=== PATIENT | female | born 1940 | race Caucasian/White ===

== ENCOUNTER 2019-05-19 14:58 | Outpatient (CLI) | payer MEDICARE, SELFPAY ==
--- NOTE | ~2019-05-19 | DEXA_ITS ---
Bone Density Report Name: Camille Elena Age: 79 Sex: Female Ethnicity: White Date of : 1940 Indication: osteopenia; monitoring treatment; height loss; hysterectomy; Referring Provider: GUILHERME TIRADO Study: Bone densitometry was performed. Exam Date: May 19, 2019 Accession number: [id number] Bone Density: Region BMD T-score Z-score Classification AP Spine (L2, L4) 1.147 0.6 3.4 Normal Femoral Neck (Left) 0.662 -1.7 0.7 Osteopenia Total Hip (Left) 0.834 -0.9 1.2 Normal Total Hip Bilateral Avg 0.788 -1.2 0.9 Osteopenia Femoral Neck (Right) 0.628 -2.0 0.4 Osteopenia Total Hip (Right) 0.742 -1.6 0.5 Osteopenia World Health Organization criteria for BMD impression classify patients as: Normal (T-score at or above -1.0), Osteopenia (T-score between -1.0 and -2.5), or Osteoporosis (T-score at or below -2.5). 10-year Fracture Risk: FRAX not reported because: Treated for osteoporosis Previous Exams: Region Exam Age BMD T-score BMD Change BMD Change Date g/cm2 vs Baseline vs Previous AP Spine(L2, L4) 05/19/2019 79 1.147 0.6 0.081(7.6%)# 0.069(6.4%)* 04/27/2017 77 1.079 0.0 0.012(1.1%)# -0.009(-0.9%)# 03/28/2013 73 1.088 0.1 0.021(2.0%)# -0.040(-3.6%)* 02/16/2011 70 1.128 0.5 0.062(5.8%)# 0.062(5.8%)# 02/07/2008 67 1.067 -0.1 Total Hip(Left) 05/19/2019 79 0.834 -0.9 -0.023(-2.7%)# -0.018(-2.1%) 04/27/2017 77 0.853 -0.7 -0.005(-0.5%)# 0.013(1.6%)# 03/28/2013 73 0.839 -0.8 -0.018(-2.1%)# 0.015(1.8%) 02/16/2011 70 0.824 -1.0 -0.033(-3.9%)# -0.033(-3.9%)# 02/07/2008 67 0.857 -0.7 Total Hip(Right) 05/19/2019 79 0.742 -1.6 -0.073(-9.0%)# -0.070(-8.6%)* 04/27/2017 77 0.811 -1.1 -0.004(-0.4%)# 0.066(8.8%)# 03/28/2013 73 0.746 -1.6 -0.069(-8.5%)# -0.036(-4.6%)* 02/16/2011 70 0.782 -1.3 -0.033(-4.1%)# -0.033(-4.1%)# 02/07/2008 67 0.815 -1.0 *Denotes significance at 95% confidence level, LSC for AP Spine = 0.022 g/cm2, LSC for Total Hip = 0.027 g/cm2 Clinical Information Provided by Patient: Is being treated for osteoporosis Has used the following medications: Boniva (i.e. ibandronate), Vitamin D Has the following medical conditions: Hysterectomy Patient maximum height was 64.5 Menopause Age: 2 Onset of menses at age 13 Number of children 2 Impression: The patient has low bone mass, based on the Right Femoral Neck T-score.
--- NOTE | ~2019-05-19 | MM_ITS ---
EXAMINATION: MM screening alanna BI w brynn HISTORY: Screening mammogram TECHNIQUE: Craniocaudal and mediolateral oblique 3-D tomosynthesis images were obtained and synthetic 2-D images were generated. CAD analysis was submitted and interpreted. COMPARISON: Comparison to multiple prior studies sequentially, with oldest reviewed study dated 11/2014. BREAST PARENCHYMAL COMPOSITION: There are scattered areas of fibroglandular density. FINDINGS: There is no evidence of suspicious mass, calcification, or architectural distortion to sugg est malignancy in either breast. There has been no suspicious interval change. IMPRESSION: 1. No mammographic evidence of malignancy. 2. Recommend routine screening mammography in one year. BI-RADS Category 1: Negative Reviewed, dictated and finalized at location A. E WRAPPER
== END 2019-05-19 14:59 | disposition home or self-care (01) ==
LOC: ANHIMG 15:01
PROVIDERS: PCP Family Medicine; Visit Provider Family Medicine
DX: Z12.31 Encounter for screening mammogram for malignant neoplasm of breast (principal); Z78.0 Asymptomatic menopausal state; M85.852 Other specified disorders of bone density and structure, left thigh; M85.851 Other specified disorders of bone density and structure, right thigh
CPT/HCPCS: 77063; 77067; 77080

== ENCOUNTER 2020-03-05 12:05 | Outpatient (CLI) | payer MEDICARE, SELFPAY ==
--- NOTE | ~2020-03-05 | US_ITS ---
EXAMINATION: US carotid duplex BI DATE: 03/05/2020 12:54 INDICATION: Carotid arterial bruit TECHNIQUE: Grayscale, color Doppler, and pulsed Doppler images of the cervical carotid arteries were obtained. The degree of vessel stenosis is placed in one of the following categories: normal, <50%, 5 0-69%, >=70% but less than near-occlusion, near-occlusion, or total occlusion. Note that percent sten osis relative to normal distal artery lumen diameter is indirectly measured from velocity measurement s as described by Zia, et al. Radiology 2003; 229:340-346. COMPARISON: None. FINDINGS: RIGHT: The right common carotid artery (CCA) peak systolic velocity (PSV) is 100 cm/s. The right internal ca rotid artery (ICA) PSV is 116 cm/s. The right ICA end-diastolic velocity (EDV) is 24 cm/s. The right ICA/CCA PSV ratio is 1.2. Grayscale and color Doppler images yield an estimate of <50% diameter reduc tion from plaque in the ICA. The external carotid artery (ECA) PSV is 73 cm/s. There is antegrade shirley w in the right vertebral artery. LEFT: The left CCA PSV is 79 cm/s. The left ICA PSV is 105 cm/s. The left ICA EDV is 26 cm/s. The left ICA/ CCA PSV ratio is 1.3. Grayscale and color Doppler images yield an estimate of <50% diameter reduction from plaque in the ICA. The ECA PSV is 69 cm/s. There is antegrade flow in the left vertebral artery . IMPRESSION: 1. <50% stenosis in the right internal carotid artery. 2. <50% stenosis in the left internal carotid artery. Reviewed, dictated and finalized at location B. ACT MIXER
== END 2020-03-05 12:06 | disposition home or self-care (01) ==
PROVIDERS: PCP Family Medicine; Visit Provider Family Medicine
DX: R09.89 Other specified symptoms and signs involving the circulatory and respiratory systems (principal)
CPT/HCPCS: 93880

== ENCOUNTER → 2020-04-26 13:57 | Outpatient (CLI) | payer MEDICARE, SELFPAY ==
--- NOTE | ~2020-04-26 | CT_ITS ---
EXAMINATION: CT abdomen pelvis wo con EXAM DATE: 04/26/2020 14:15 INDICATION: Low abdominal pain for one month. Right nephrectomy (donor). Hysterectomy. TECHNIQUE: Spiral CT of the abdomen and pelvis was performed without contrast. Axial, coronal and s agittal images were reviewed. The dose-length product (DLP) for this examination was 333.93 mGy-cm. The exposure was tailored according to patient size (auto mA exposure control), and iterative recons truction (ASIR) was used as additional dose reduction technique. Comparison is made to prior examinat ion from 08/16/2018. FINDINGS: The liver, spleen, adrenal glands and pancreas are unremarkable. Gallbladder is unremarkab le. No biliary obstruction. There is no left nephrolithiasis or hydronephrosis. The uterus is not identified and has likely been surgically resected. The bladder is unremarkable. There is no retro peritoneal or pelvic lymphadenopathy. There is moderate scattered arteriosclerotic disease. The appendix is not positively visualized. There is no pericecal inflammatory change to suggest appe ndicitis. The stomach and small bowel are unremarkable. There is expected amount of colonic stool. No free intraperitoneal gas. The heart is normal in size. There are no pericardial or pleural e ffusions. The lung bases are unremarkable. There are no osteoblastic or osteolytic lesions identifi ed. Advanced thoracolumbar spondylosis. IMPRESSION: 1. No acute intra-abdominal findings. Reviewed, dictated and finalized at location B. SING DEPARTMENT SUPERVISOR
== END ==
PROVIDERS: Visit Provider Family Medicine
DX: R10.9 Unspecified abdominal pain (principal)
CPT/HCPCS: 74176

== ENCOUNTER 2020-07-16 10:28 | Outpatient (CLI) | payer MEDICARE, SELFPAY ==
--- NOTE | ~2020-07-16 | MM_ITS ---
EXAMINATION: MM screening alanna BI w brynn HISTORY: Screening mammogram TECHNIQUE: Craniocaudal and mediolateral oblique 3-D tomosynthesis images were obtained and synthetic 2-D images were generated. CAD analysis was submitted and interpreted. COMPARISON: May 19, 2019, May 17, 2018, April 27, 2017, April 21, 2016 bilateral digita l screening mammogram examinations BREAST PARENCHYMAL COMPOSITION: There are scattered areas of fibroglandular density. FINDINGS: Stable mild fibroglandular asymmetry. There is no evidence of suspicious mass, calcificatio n, or architectural distortion to suggest malignancy in either breast. There has been no suspicious i nterval change. IMPRESSION: 1. No mammographic evidence of malignancy. 2. Recommend routine screening mammography in one year. BI-RADS Category 2: Benign finding(s). Reviewed, dictated and finalized at location A.
== END 2020-07-16 10:29 | disposition home or self-care (01) ==
LOC: ANHIMG 10:34
PROVIDERS: Visit Provider Family Medicine
DX: Z12.31 Encounter for screening mammogram for malignant neoplasm of breast (principal)
CPT/HCPCS: 77063; 77067

== ENCOUNTER 2021-06-09 14:53 | Emergency (ER) | payer MEDICARE, SELFPAY ==
[2021-06-09 14:58] VITALS: BP 142/70; PULSE 66; RESP 16; TEMP 36.6; O2SAT 98
--- NOTE | 2021-06-09 15:01 | ED.UPPEXIN ---
HPI - Extremity Injury (Upper) General Chief Complaint: Extremity Injury, Upper Stated Complaint: Right arm pain Time Seen by Provider: 06/09/21 15:01 Source: patient Mode of arrival: ambulatory Limitations: no limitations History of Present Illness HPI narrative: Ms. Elena is an 81-year-old female patient presenting to the clinic today with complaints of intermittent right arm pain x1 year. She reports the right arm pain has worsened over the last 5 days. Has been swimming-completing breaststroke's at the [facility] and thinks that this has increased her pain. Reports the pain is a dull ache that waxes and wanes at night. This pain is disrupting her sleep pattern. She denies any numbness or tingling in her hand or fingers. 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 Denies any pain over the elbow Related Data Allergies Allergy/AdvReac Type Severity Reaction Status Date / Time hydroxyzine Allergy Mild pruritus Verified 06/09/21 15:02 Review of Systems Review of Systems: Pertinent positives per HPI. Patient denies any fever, chills, rash, headache, visual changes, dizziness, cough, runny nose, sore throat, shortness of breath, chest pain, palpitations, nausea, vomiting, diarrhea, constipation, abdominal pain, or any urinary issues. [facility] Past Medical History Medical History Arterial atherosclerosis Arthritis Benign reactive hypertension Mixed hyperlipidemia Osteopenia after menopause Spondylosis of cervicothoracic spine Surgical History Surgical History H/O cervical spine surgery H/O kidney donation Hx of hysterectomy Family History Family History Sibling Patient's brother is in good health Family history of kidney disease Mother Family history of cardiovascular disease Family history of arthritis Family history of malignant neoplasm Father Family history of cardiovascular disease Family history of arthritis Social History Social History (Updated 02/07/21 @ 10:14 by Mary Jane Smyth) Social History: Smoking status: Never smoker Second hand tobacco smoke exposure: No Alcohol intake: current Drinks per week: 7 Substance use: never Substance use type: does not use Gender identity (if verbalized by the patient): Female Sexual Orientation (if Verbalized by the Patient): Straight or Heterosexual Comments At the time of my signature, I reviewed and agree with the nursing past medical, surgical, social, and family history. Exam Narrative: General: Well-developed, well nourished, in no apparent distress. Head: Normocephalic, atraumatic Cardio: Regular rate and rhythm, s1 and s2 normal, no murmur appreciated. Resp: Clear to auscultation bilaterally, no rhonchi, rales, wheezing or rubs. Musculoskeletal: No deformity, mild tenderness to palpation over the right biceps tendon and triceps muscle, grossly normal range of motion, some discomfort over the triceps and biceps with empty can and full can testing, muscle strength strong and equal, hand grasp equal and strong, peripheral pulse strong, no edema, no cyanosis, normal gait and station Course Course Emergency Course: Portions of this record may have been created with voice recognition software. Level of Care: Express Care Visit Vital Signs Vital signs: Vital signs reviewed MDM - Extremity Injury (Upper) MDM Narrative Medical decision making narrative: At the time of visit patient was complaining of right upper arm pain. Reports that pain was worse last night keeping her up. Has mild pain to palpation over the biceps tendon and the triceps of the right arm today. She denies any radiation of pain that starts from her neck and going down her arm. Has equal strong hand grasp. I suspect
[2021-06-09 15:04] VITALS: BP 142/70; PULSE 66; RESP 16; TEMP 36.6; O2SAT 98
== END 2021-06-09 15:16 | disposition home or self-care (01) ==
PROVIDERS: Emergency Provider Nurse Practitioner Family; PCP Family Medicine
DX: M75.21 Bicipital tendinitis, right shoulder (principal); M19.90 Unspecified osteoarthritis, unspecified site; E78.2 Mixed hyperlipidemia; M81.0 Age-related osteoporosis without current pathological fracture; M47.813 Spondylosis without myelopathy or radiculopathy, cervicothoracic region; I10 Essential (primary) hypertension; I70.90 Unspecified atherosclerosis
CPT/HCPCS: 99213; G0463

== ENCOUNTER 2021-08-08 10:08 | Outpatient (CLI) | payer MEDICARE, SELFPAY ==
--- NOTE | ~2021-08-08 | XR_ITS ---
XR shoulder RT min 2V 08/08/2021 12:25 Indication: Right shoulder pain Procedure: 4 views right shoulder Comparison: No prior studies for comparison. Findings: There is moderate glenohumeral joint osteoarthritis. Prominent marginal osteophyte. No frac ture or traumatic malalignment. Surrounding osseous structures within normal normal limits. Acromiocl avicular joint and anatomic alignment. No significant soft tissue abnormality. No foreign bodies. Impression: 1: Moderate right glenohumeral joint osteoarthritis. Reviewed, dictated and finalized at location B. Impression: 1: Moderate right glenohumeral joint osteoarthritis.
== END 2021-08-08 10:09 | disposition home or self-care (01) ==
LOC: ANHIMG 10:10
PROVIDERS: PCP Family Medicine; Visit Provider Family Medicine
DX: M19.011 Primary osteoarthritis, right shoulder (principal)
CPT/HCPCS: 73030

== ENCOUNTER 2021-10-31 14:31 | Outpatient (CLI) | payer MEDICARE, SELFPAY ==
--- NOTE | ~2021-10-31 | DEXA_ITS ---
Bone Density Report Name: NANCY CORRIGAN Age: 81 Sex: Female Ethnicity: White Date of : 1940 Indication: osteopenia; height loss; hysterectomy; postmenopausal Referring Provider: GUILHERME TIRADO Study: Bone densitometry was performed. Exam Date: October 31, 2021 Accession number: [id number] Bone Density: Region BMD T-score Z-score Classification AP Spine(L2, L3, L4) 1.195 1.1 4.0 Normal Femoral Neck (Left) 0.681 -1.5 1.0 Osteopenia Total Hip (Left) 0.820 -1.0 1.3 Normal Femoral Neck (Right) 0.635 -1.9 0.5 Osteopenia Total Hip (Right) 0.767 -1.4 0.8 Osteopenia Total Hip Mean 0.794 -1.2 1.1 Osteopenia World Health Organization criteria for BMD impression classify patients as: Normal (T-score at or above -1.0), Osteopenia (T-score between -1.0 and -2.5), or Osteoporosis (T-score at or below -2.5). 10-year Fracture Risk(1): Major Osteoporotic Fracture 15% Hip Fracture 4.7% Reported Risk Factors: [place] (), Neck BMD=0.635, BMI=23.8 (1) FRAX(R) Version 3.08. Fracture probability calculated for an untreated patient. Fracture probability may be lower if the patient has received treatment. Previous Exams: Region Exam Age BMD T-score BMD Change BMD Change Date g/cm2 vs Baseline vs Previous Total Hip(Left) 10/31/2021 81 0.820 -1.0 -0.004 (-0.4%) -0.014 (-1.7%) 05/19/2019 79 0.834 -0.9 0.010 (1.3%)# -0.018 (-2.1%) 04/27/2017 77 0.853 -0.7 0.029 (3.5%)# 0.029 (3.5%)# 02/16/2011 70 0.824 -1.0 Total Hip(Right) 10/31/2021 81 0.767 -1.4 -0.014 (-1.8%) 0.026 (3.5%) 05/19/2019 79 0.742 -1.6 -0.040 (-5.1%) -0.070 (-8.6%) 04/27/2017 77 0.811 -1.1 0.030 (3.8%)# 0.030 (3.8%)# 02/16/2011 70 0.782 -1.3 *Denotes significance at 95% confidence level, LSC for Total Hip = 0.027 g/cm2 # Denotes dissimilar scan types or analysis methods Clinical Information Provided by Patient: Has used the following medications: Vitamin D Has the following medical conditions: Hysterectomy Patient maximum height was 64.5 Menopause Age: 46 Onset of menses at age 13 Number of children 2 Impression: The patient has low bone mass, based on the Right Femoral Neck T-score. The patient has an estimated ten-year risk of hip fracture of 4.7% and an estimated ten-year risk of major fracture of 15%, based on the WHO FRAX algorithm. No significant bone loss was observed. Discussion: BONE DENSITY IS LOW AT ONE OR MORE SKELETAL SITES.
--- NOTE | ~2021-10-31 | MM_ITS ---
EXAMINATION: MM screening [facility] BI w brynn HISTORY: Screening mammogram TECHNIQUE: Craniocaudal and mediolateral oblique 3-D tomosynthesis images were obtained and synthetic 2-D images were generated. CAD analysis was submitted and interpreted. COMPARISON: 07/16/2020, 05/19/2019, 05/17/2018 BREAST PARENCHYMAL COMPOSITION: There are scattered areas of fibroglandular density. FINDINGS: There is no suspicious mass, calcification, or architectural distortion to suggest malignan cy in either breast. There has been no suspicious interval change. IMPRESSION: 1. No mammographic evidence of malignancy. 2. Recommend routine screening mammography while the patient remains in good health. BI-RADS Category 1: Negative Reviewed, dictated and finalized at location A. IMPRESSION: 1. No mammographic evidence of malignancy. 2. Recommend routine screening mammography while the patient remains in good he alth. BI-RADS Category 1: Negative
== END 2021-10-31 14:32 | disposition home or self-care (01) ==
PROVIDERS: PCP Family Medicine; Visit Provider Family Medicine
DX: Z12.31 Encounter for screening mammogram for malignant neoplasm of breast (principal); Z78.0 Asymptomatic menopausal state; M85.852 Other specified disorders of bone density and structure, left thigh; M85.851 Other specified disorders of bone density and structure, right thigh
CPT/HCPCS: 77063; 77067; 77080

== ENCOUNTER 2021-11-21 13:03 | Emergency (ER) | payer MEDICARE, SELFPAY ==
[2021-11-21 13:09] VITALS: BP 155/75; PULSE 78; RESP 16; TEMP 36.4; O2SAT 98
--- NOTE | 2021-11-21 13:54 | ED.WOUNDLAC ---
HPI - Wound/Laceration General Chief Complaint: Wound/Laceration Stated Complaint: laceration Time Seen by Provider: 11/21/21 13:45 History of Present Illness HPI narrative: Patient is an 81-year-old female with a history of hypertension, hyperlipidemia presenting with a leg injury. Patient states that she was walking through her garage when she accidentally scraped her leg against a torie ornament. She sustained a skin tear to her right lower extremity. States that her Tdap is up-to-date. She denies further injury. Denies further complaints. Related Data Allergies Allergy/AdvReac Type Severity Reaction Status Date / Time hydroxyzine Allergy Mild pruritus Verified 11/25/21 13:54 Review of Systems Review of Systems: All systems reviewed & are unremarkable except as noted in HPI and below PMFSH Past Medical History Medical History Arterial atherosclerosis Arthritis Benign reactive hypertension History of stress test (~2011) Mixed hyperlipidemia Osteopenia after menopause Spondylosis of cervicothoracic spine Surgical History Surgical History H/O cervical spine surgery H/O kidney donation (~1985) Hx of hysterectomy (~1988) Family History Family History Sibling Patient's brother is in good health Family history of kidney disease Mother Family history of cardiovascular disease Family history of arthritis Family history of malignant neoplasm Father Family history of cardiovascular disease Family history of arthritis Social History Social History (Updated 11/25/21 @ 13:55 by Mary Jane Smyth) Social History: Smoking status: Never smoker Second hand tobacco smoke exposure: No Alcohol intake: current Drinks per week: 7 Alcohol use details: drinks a glass of wine once a day. Substance use: never Substance use type: does not use Gender identity (if verbalized by the patient): Female Sexual Orientation (if Verbalized by the Patient): Straight or Heterosexual Exam Narrative: GENERAL: Well-appearing, well-nourished, and in no acute distress. HEAD: Normocephalic, atraumatic. EYES: PERRLA and EOMI. ENT: Nares clear, no rhinorrhea or epistaxis. Mucous membranes moist. NECK: Supple. CHEST: Clear to auscultation. No respiratory distress. HEART: Regular rate and rhythm. No murmur heard. Normal peripheral pulses. ABDOMEN: Soft, nontender, nondistended, normal active bowel sounds. EXTREMITIES: Normal range of motion. No edema. SKIN: +skin tear to R lower extremity, bleeding well controlled; no lacerations requiring repair NEURO: No focal deficits. Alert and oriented x3. PSYCH: Normal mood and affect. Course Course Emergency Course: Patient is an 81-year-old female presenting with a skin tear to her lower extremity. Patient is hypertensive, otherwise vitals are within normal limits. Exam is remarkable for the above. Patient states that her Tdap is up-to-date. The skin tear was cleaned and dressed with nonadhesive dressing. Discussed appropriate wound care. Advised to monitor for signs of infection. Recommended following up with her primary care provider within 3 to 5 days. Appropriate return precautions were given. Patient voiced understanding and is agreeable with plan. Discharged in stable condition. Vital Signs Vital signs: Vital Signs Temperature 97.6 F 11/21/21 13:09 Pulse Rate 78 11/21/21 13:09 Respiratory Rate 16 11/21/21 13:09 Blood Pressure 155/75 H 11/21/21 13:09 Pulse Oximetry 98 11/21/21 13:09 Temperature 97.6 F 11/21/21 13:09 Pulse Rate 78 11/21/21 13:09 Respiratory Rate 16 11/21/21 13:09 Blood Pressure 155/75 H 11/21/21 13:09 Pulse Oximetry 98 11/21/21 13:09 Discharge Plan Discharge Clinical Impression: Skin tear of lower leg wi
== END 2021-11-21 14:29 | disposition home or self-care (01) ==
PROVIDERS: Emergency Provider Emergency Medicine; PCP Family Medicine
DX: S81.811A Laceration without foreign body, right lower leg, initial encounter (principal); I70.90 Unspecified atherosclerosis; I10 Essential (primary) hypertension; E78.2 Mixed hyperlipidemia; M85.80 Other specified disorders of bone density and structure, unspecified site; M19.90 Unspecified osteoarthritis, unspecified site; Z90.710 Acquired absence of both cervix and uterus; W26.8XXA Contact with other sharp object(s), not elsewhere classified, initial encounter
CPT/HCPCS: 99282

== ENCOUNTER 2022-01-14 07:25 | Outpatient (RCR) | payer MEDICARE, SELFPAY ==
[2021-12-17 10:00] VITALS: BMI 23.4
== END 2022-03-02 08:39 | disposition home or self-care (01) ==
LOC: ANHWOC 07:25
PROVIDERS: PCP Family Medicine; Visit Provider Physician Assistant
DX: L03.115 Cellulitis of right lower limb (principal)
CPT/HCPCS: 99212; 99213; A9270; G0463

== ENCOUNTER 2022-07-01 13:56 | Outpatient (CLI) | payer MEDICARE, SELFPAY ==
--- NOTE | ~2022-07-01 | XR_ITS ---
EXAM: XR abdomen/kub 1V DATE: 07/01/2022 14:34 HISTORY: R10.9 - Unspecified abdominal pain MID ABD X 1 WK NO N/V . COMPARISON: CT abdomen and pelvis 04/26/2020. FINDINGS: Bibasilar scar/atelectasis.. Normal bowel gas pattern. No organomegaly. Degenerative roa es in the lumbar spine, bilateral hips and pubic symphysis. Pelvic phleboliths. IMPRESSION: No radiographic evidence of obstruction or ileus. Reviewed, dictated and finalized at location K.
[2022-07-01 14:28] LABS: Basophils Absolute Auto 0.1 K/mm3 (0.0-0.1); Eosinophils Absolute Auto 0.1 K/mm3 (0-0.3); Eosinophils Percent Auto 0.7 % (0-4.4); Hematocrit 41.4 % (37.0-47.0); Hemoglobin 13.9 g/dL (12.0-15.0); Immature Granulocyte Absolute 0.01 K/mm3 (0.00-0.031); Immature Granulocyte Percent A 0.1 % (0-0.5); Lymphocytes Absolute Auto 2.03 K/mm3 (0.9-3.2); Lymphocytes Percent Auto 28.9 % (18.3-44.2); Mean Corpuscular HGB Conc 33.6 g/dl (32-36); Mean Corpuscular Hemoglobin 31.8 pg (26-34); Mean Corpuscular Volume 94.7 fl (80-100); Monocytes Absolute Auto 0.6 K/mm3 (0.1-0.6); Monocytes Percent Auto 8.7 % (2.6-8.5); Neutrophils Absolute Auto 4.3 K/mm3 (1.3-6.7); Neutrophils Percent Auto 60.6 % (45.5-73.1); Platelet Count Result 326 k/mm3 (150-375); Red Blood Count 4.37 M/mm3 (4.2-5.4); Red Cell Distribution Width 13.4 % (11.5-14.5)
[2022-07-01 14:40] LABS: Alanine Aminotransferase 24 U/L (6-35); Albumin Level 4.5 g/dL (3.5-5.1); Alkaline Phosphatase 75 U/L (38-126); Amylase 110 U/L (30-110); Anion Gap 7 mmol/L (8-16); Aspartate Amino Transferase 28 U/L (14-36); Bilirubin,Total 0.6 mg/dL (0.2-1.3); Blood Urea Nitrogen 20 mg/dL (7-17); Carbon Dioxide 32 mmol/L (22-30); Chloride 98 mmol/L (98-107); Estimated Glomerular Filt Rate > 60; Glucose 109 mg/dL (65-110); Lipase 238 U/L (23-300); Potassium 3.6 mmol/L (3.4-5.0); Sodium 137 mmol/L (137-145)
== END 2022-07-01 13:57 | disposition home or self-care (01) ==
PROVIDERS: PCP Family Medicine; Visit Provider Nurse Practitioner Gerontology
DX: R10.9 Unspecified abdominal pain (principal)
CPT/HCPCS: 36415; 74018; 80053; 82150; 83690; 85025

== ENCOUNTER 2022-07-03 15:04 | Outpatient (CLI) | payer MEDICARE, SELFPAY ==
--- NOTE | ~2022-07-03 | CT_ITS ---
EXAMINATION: CT abdomen pelvis wo con DATE: 07/03/2022 15:28 INDICATION: Abdominal pain TECHNIQUE: Computed tomography (CT) of the abdomen and pelvis was performed without intravenous contr ast. The dose-length product was 241.25 mGy-cm. Automated exposure control and iterative reconstructi on technique were employed. COMPARISON: CT dated 04/26/2020. FINDINGS: Elevated right diaphragm, suspicious for phrenic nerve paralysis. Right basilar compressive atelectasis. No significant pleural or pericardial effusion. There is a hernia involving the right u pper abdomen posterior laterally with extension of the liver through the musculature, possibly relate d to prior trauma. There are calcified granulomas of the spleen. The pancreas, adrenal glands and left kidney are unremarkable. The right kidney is not identified, po ssibly congenitally or surgically absent. Nonobstructive bowel pattern. Colonic diverticulosis withou t evidence for diverticulitis. No abnormal pelvic masses or fluid collections. The uterus is surgical ly absent. Severe lumbar spondylosis with dextroscoliosis. IMPRESSION: 1. No acute abdominal abnormality. Reviewed, dictated and finalized at location B.
== END 2022-07-03 15:05 | disposition home or self-care (01) ==
LOC: ANHIMG 15:05
PROVIDERS: PCP Family Medicine; Visit Provider Nurse Practitioner Gerontology
DX: R10.9 Unspecified abdominal pain (principal)
CPT/HCPCS: 74176

== ENCOUNTER 2023-01-05 14:57 | Outpatient (CLI) | payer MEDICARE, SELFPAY ==
--- NOTE | ~2023-01-05 | MM_ITS ---
EXAMINATION: MM screening alanna BI w brynn HISTORY: Screening TECHNIQUE: Craniocaudal and mediolateral oblique 3-D tomosynthesis images were obtained and synthetic 2-D images were generated. CAD analysis was submitted and interpreted. COMPARISON: Comparison to multiple prior studies sequentially, with oldest reviewed study dated 04/21. BREAST PARENCHYMAL COMPOSITION: There are scattered areas of fibroglandular density. FINDINGS: There is no evidence of suspicious mass, calcification, or architectural distortion to sugg est malignancy in either breast. There has been no suspicious interval change. IMPRESSION: 1. No mammographic evidence of malignancy. 2. Recommend routine screening mammography in one year. BI-RADS Category 1: Negative Reviewed, dictated and finalized at location A.
== END 2023-01-05 14:58 | disposition home or self-care (01) ==
PROVIDERS: PCP Family Medicine; Visit Provider Family Medicine
DX: Z12.31 Encounter for screening mammogram for malignant neoplasm of breast (principal)
CPT/HCPCS: 77063; 77067

== ENCOUNTER 2024-02-24 11:54 | Outpatient (CLI) | payer MEDICARE, SELFPAY | END 2024-02-24 11:55 | disposition home or self-care (01) | PROVIDERS: PCP Family Medicine; Visit Provider Nurse Practitioner Family | DX: R10.30 Lower abdominal pain, unspecified (principal) | CPT/HCPCS: 83993 ==

== ENCOUNTER 2024-03-13 10:21 | Outpatient (CLI) | payer MEDICARE, SELFPAY ==
--- NOTE | ~2024-03-13 | CT_ITS ---
EXAMINATION: CTA abdomen pelvis DATE: 03/13/2024 10:47 INDICATION: Other specified signs and symptoms involving the circulatory and respiratory system. TECHNIQUE: Computed tomographic angiography (CTA) of the abdomen and pelvis was performed with 100 mL Omnipaque-350 intravenous contrast. Additional 3D reconstructions utilizing rotating maximum intensi ty projection (MIP) were performed. Automated exposure control and iterative reconstruction technique were employed. The dose-length product was 232.86 mGy-cm. COMPARISON: 07/03/2022 FINDINGS: Mild dependent and basilar atelectasis in the bilateral lower lungs. Heart size is normal. No pericar dial or pleural effusion. 11 mm cyst in the caudal right hepatic lobe. Multiple small splenic calcifi cations consistent with old granulomatous disease. Gallbladder, pancreas, bilateral adrenal glands an d left kidney are normal. Right kidney is absent. Bowels including the appendix are normal. Bladder i s normal. The uterus is not identified and has likely been surgically resected. No free intraperitone al gas or fluid. No pathologically enlarged abdominal or pelvic lymphadenopathy. There is calcified a therosclerosis without hemodynamic significant stenosis of the normal caliber abdominal aorta and man y of the other arteries the abdomen and pelvis. Lumbar dextroscoliosis with severe lumbar and lower t horacic spondylosis. IMPRESSION: 1. Nonhemodynamically significant atherosclerotic plaque at the normal caliber abdominal aorta and th e other arteries in the abdomen and pelvis. 2. No acute intra-abdominal/pelvic process. Reviewed, dictated and finalized at location B. UTER SYSTEMS SECURITY ANALYST IMPRESSION: 1. Nonhemodynamically significant atherosclerotic plaque at the normal caliber abdominal aorta and the other arteries in the abdomen and pelvis. 2. No acute intra-abdominal/pelvic process.
[2024-03-13 10:43] LABS: Estimated Glomerular Filt Rate 47
== END 2024-03-13 10:22 | disposition home or self-care (01) ==
PROVIDERS: PCP Family Medicine; Visit Provider Nurse Practitioner Family
DX: I70.0 Atherosclerosis of aorta (principal); I70.8 Atherosclerosis of other arteries; R09.89 Other specified symptoms and signs involving the circulatory and respiratory systems
CPT/HCPCS: 74174; Q9967

== ENCOUNTER 2024-07-04 09:50 | Outpatient (CLI) | payer MEDICARE, SELFPAY ==
--- NOTE | ~2024-07-04 | MM_ITS ---
EXAMINATION: MM screening alanna BI w brynn HISTORY: Screening TECHNIQUE: Craniocaudal and mediolateral oblique 3-D tomosynthesis images were obtained and synthetic 2-D images were generated. CAD analysis was submitted and interpreted. COMPARISON: Comparison to multiple prior studies sequentially, with oldest reviewed study dated 08/2017. BREAST PARENCHYMAL COMPOSITION: Not dense: There are scattered areas of fibroglandular density. FINDINGS: There is no evidence of suspicious mass, calcification, or architectural distortion to sugg est malignancy in either breast. There has been no suspicious interval change. IMPRESSION: 1. No mammographic evidence of malignancy. 2. Recommend routine screening mammography in one year. BI-RADS Category 1: Negative Reviewed, dictated and finalized at location B.
--- OUTSIDE RECORDS SUMMARY | 2024-07-04 10:36 | XMS_ITS | Clinical Summary ---
Author Organization [facility] Address [address] [place] [address] Care Team Providers Care Manager Baby Name Role Phone Rand Leon MD Primary Care Provider +1- [phone] Immunizations Immunization Administration Dates Next Due MODERNA COVID-19 (12+) MRNA, LNP-S, PF, 100 MCG/ 0.5 ML DOSE 05/31/2020,05/03/2020 Social History Tobacco Use Types Packs/Day Years Used Date Smoking Tobacco: Never Assessed Comments Unknown Sex and Gender Information Value Date Recorded Sex Assigned at Not on file Legal Sex Female 11:48 AM TREE TRIMMER HELPER Gender Identity Not on file Sexual Orientation Not on file Plan of Treatment Health Maintenance Due Date Last Done Comments DTaP, Tdap and Td Vaccines ( 1 - Tdap) 1959 Annual Medicare Wellness Visit 2003 RSV Immunization or 60+ Years (1 - 1-dose 75+ series) 2013 Pneumococcal Vaccine: 50+ Years (2 of 2 - PPSV23 or PCV20) 04/18/2018 04/18/2017 Zoster Vaccines (2 of 2) 05/23/2018 03/28/2018 COVID-19 Vaccine (3 - 2023-2 5 season) 2023 05/31/2020, 05/03/2020 Meningococcal B Vaccine Aged Out No l onger eligible based on patient's age to complete this topic Meningococcal Vaccine Aged Out No lars mirta eligible based on patient's age to complete this topic RSV Immunizations Under 20 Months Aged Out No longer eligible b ased on patient's age to complete [place] [address] [facility] Care Teams Manager Baby Relationship Specialty Start Date End Date Rand Leon MD [address] [facility] [address] [facility] [address] [place] [address] PCP - General FAMILY PRACTICE 05/03/20
--- OUTSIDE RECORDS SUMMARY | 2024-07-04 10:36 | XMS_ITS | Continuity of Care Document ---
Author Organization [facility] Address [address] [place] [address] [address] [place] [address] Phone Care Team Providers Care Perfumer Name Role Phone Yumiko Stokes Unavailable Unavailable Procedures Procedure Date Eye Exam & Treatment Eye Exam & Treatment Refraction Advance Directives Directive Yes / No Effective Date File Name No Information Encounters Encounter Description Practice Location Reason(s) For Visit Diagnoses Date Provider Providers Copied on Encounter [facility], [address] [place] [address] [address], [place], [place], [id number], tel:[phone] [facility] No Information [address] [facility] , [address], [place], [place], [facility], [place]. tel:[phone] [facility], [address] [place] [address] [address], [place], [place], [id number], tel:[phone] [facility] No Information [address] , [address], [place], [address], [place]. tel:[phone] Family History Family Member Type Diagnosis Age At Onset No Information Payers Payer name Insurance type Covered democrat ID Authoriza tion(s) Medicare [facility] [id number] Social History Type Description Quantity Date Captured [...]
--- OUTSIDE RECORDS SUMMARY | 2024-07-04 10:36 | XMS_ITS | Referral Summary ---
Author Organization [facility] [address] Address [address] [place] [address] Care Team Providers Care Automotive Tire Testing Supervisor Name Role Phone Rand Leon MD Primary Care Provider Social History Tobacco Use Types Packs/Day Years Used Date Smoking Tobacco: Never Assessed Personal Safety Answer Date Recorded Getting School Help Needed Not on file 06/03 Comments Unknown Sex and Gender Information Value Date Recorded Sex Assigned at Not on file Legal Sex Female 12:01 AM PET STORE MERCHANDISER Gender Identity Not on file Sexual Orientation Not on file Last Filed Vital Signs Vital Sign Reading Time Taken Comments Blood Pressure 146/85 05/11/2019 8:55 AM PET STORE MERCHANDISER Pulse - - Temperature - - Respiratory Rate - - Oxygen Saturation - - Inhaled Oxygen Concentration - - Weight 57.6 kg (127 lb) 05/11/2019 8:55 AM PET STORE MERCHANDISER Height 162.6 cm (5' 4 ) 05/11/2019 8:55 AM PET STORE MERCHANDISER Body Mass Index 21.8 05/11/2019 8:55 AM PET STORE MERCHANDISER Plan of Treatment Not on file Insurance LAUREN GONZALEZ Care Teams Automotive Tire Testing Supervisor Relationship Specialty Start Date End Date Rand Leon MD [address] [place] [address] PCP - General Family Medicine 04/21/19
--- OUTSIDE RECORDS SUMMARY | 2024-07-04 10:36 | XMS_ITS | Clinical Summary ---
Author Organization [facility] [address] Address [address] [place] [address] Care Team Providers Care Farmworker Machine Name Role Phone Rand Leon MD Primary Care Provider Social History Tobacco Use Types Packs/Day Years Used Date Smoking Tobacco: Never Assessed Personal Safety Answer Date Recorded Getting School Help Needed Not on file 06/03 Comments Unknown Sex and Gender Information Value Date Recorded Sex Assigned at Not on file Legal Sex Female 12:01 AM ORTHO ASSISTANT Gender Identity Not on file Sexual Orientation Not on file Last Filed Vital Signs Vital Sign Reading Time Taken Comments Blood Pressure 146/85 05/11/2019 8:55 AM ORTHO ASSISTANT Pulse - - Temperature - - Respiratory Rate - - Oxygen Saturation - - Inhaled Oxygen Concentration - - Weight 57.6 kg (127 lb) 05/11/2019 8:55 AM ORTHO ASSISTANT Height 162.6 cm (5' 4 ) 05/11/2019 8:55 AM ORTHO ASSISTANT Body Mass Index 21.8 05/11/2019 8:55 AM ORTHO ASSISTANT Plan of Treatment Not on file Insurance LAUREN GONZALEZ Care Teams Farmworker Machine Relationship Specialty Start Date End Date Rand Leon MD [address] [place] [address] PCP - General Family Medicine 04/21/19
== END 2024-07-04 09:51 | disposition home or self-care (01) ==
PROVIDERS: PCP Family Medicine; Visit Provider Family Medicine
DX: Z12.31 Encounter for screening mammogram for malignant neoplasm of breast (principal)
CPT/HCPCS: 77063; 77067

== ENCOUNTER 2024-07-31 13:03 | Outpatient (CLI) | payer MEDICARE, SELFPAY ==
--- OUTSIDE RECORDS SUMMARY | 2024-07-31 13:08 | XMS_ITS | Continuity of Care Document ---
Author Organization [facility] Address [address] [place] [address] [address] [place] [address] Phone Care Team Providers Care Electric Switch Tester Name Role Phone Yumiko Stokes Unavailable Unavailable Procedures Procedure Date Eye Exam & Treatment Eye Exam & Treatment Refraction Advance Directives Directive Yes / No Effective Date File Name No Information Encounters Encounter Description Practice Location Reason(s) For Visit Diagnoses Date Provider Providers Copied on Encounter [facility], [address] [place] [address] [address], [place], [place], [id number], tel:[phone] [facility] No Information [address] [facility] , [address], [place], [place], [facility], [place]. tel:[phone] [facility], [address] [place] [address] [address], [place], [place], [id number], tel:[phone] [facility] No Information [address] , [address], [place], [address], [place]. tel:[phone] Family History Family Member Type Diagnosis Age At Onset No Information Payers Payer name Insurance type Covered green party ID Authoriza tion(s) Medicare [facility] [id number] Social History Type Description Quantity Date Captured [...]
--- OUTSIDE RECORDS SUMMARY | 2024-07-31 13:08 | XMS_ITS | Clinical Summary ---
Author Organization [facility] Address [address] [place] [address] Care Team Providers Care Spout Tender Name Role Phone Rand Leon MD Primary Care Provider +1- [phone] Immunizations Immunization Administration Dates Next Due MODERNA COVID-19 (12+) MRNA, LNP-S, PF, 100 MCG/ 0.5 ML DOSE 05/31/2020,05/03/2020 Social History Tobacco Use Types Packs/Day Years Used Date Smoking Tobacco: Never Assessed Comments Unknown Sex and Gender Information Value Date Recorded Sex Assigned at Not on file Legal Sex Female 11:48 AM REHAB OFFICE COORDINATOR Gender Identity Not on file Sexual Orientation Not on file Plan of Treatment Health Maintenance Due Date Last Done Comments DTaP, Tdap and Td Vaccines ( 1 - Tdap) 1959 Annual Medicare Wellness Visit 2003 RSV Immunization or 60+ Years (1 - 1-dose 75+ series) 2013 Pneumococcal Vaccine: 50+ Years (2 of 2 - PPSV23) 04/18/2018 04/18/2017 Zoster Vaccines (2 of 2) [...] patient's age to complete [place] [address] [facility] Care Teams Spout Tender Relationship Specialty Start Date End Date Rand Leon MD [address] [facility] [address] [facility] [address] [place] [address] PCP - General FAMILY PRACTICE 05/03/20
--- OUTSIDE RECORDS SUMMARY | 2024-07-31 13:08 | XMS_ITS | Referral Summary ---
Author Organization [facility] [address] Address [address] [place] [address] Care Team Providers Care Property Portfolio Officer Name Role Phone Rand Leon MD Primary Care Provider Social History Tobacco Use Types Packs/Day Years Used Date Smoking Tobacco: Never Assessed Personal Safety Answer Date Recorded Getting School Help Needed Not on file 06/03 Comments Unknown Sex and Gender Information Value Date Recorded Sex Assigned at Not on file Legal Sex Female 12:01 AM CASH ACCOUNTING CLERK Gender Identity Not on file Sexual Orientation Not on file Last Filed Vital Signs Vital Sign Reading Time Taken Comments Blood Pressure 146/85 05/11/2019 8:55 AM CASH ACCOUNTING CLERK Pulse - - Temperature - - Respiratory Rate - - Oxygen Saturation - - Inhaled Oxygen Concentration - - Weight 57.6 kg (127 lb) 05/11/2019 8:55 AM CASH ACCOUNTING CLERK Height 162.6 cm (5' 4 ) 05/11/2019 8:55 AM CASH ACCOUNTING CLERK Body Mass Index 21.8 05/11/2019 8:55 AM CASH ACCOUNTING CLERK Plan of Treatment Not on file Insurance LAUREN GONZALEZ Care Teams Property Portfolio Officer Relationship Specialty Start Date End Date Rand Leon MD [address] [place] [address] PCP - General Family Medicine 04/21/19
--- OUTSIDE RECORDS SUMMARY | 2024-07-31 13:08 | XMS_ITS | Clinical Summary ---
Author Organization [facility] [address] Address [address] [place] [address] Care Team Providers Care Mechanical Cad Designer Name Role Phone Rand Leon MD Primary Care Provider Social History Tobacco Use Types Packs/Day Years Used Date Smoking Tobacco: Never Assessed Personal Safety Answer Date Recorded Getting School Help Needed Not on file 06/03 Comments Unknown Sex and Gender Information Value Date Recorded Sex Assigned at Not on file Legal Sex Female 12:01 AM ELECTRONIC WARFARE SPECIALIST Gender Identity Not on file Sexual Orientation Not on file Last Filed Vital Signs Vital Sign Reading Time Taken Comments Blood Pressure 146/85 05/11/2019 8:55 AM ELECTRONIC WARFARE SPECIALIST Pulse - - Temperature - - Respiratory Rate - - Oxygen Saturation - - Inhaled Oxygen Concentration - - Weight 57.6 kg (127 lb) 05/11/2019 8:55 AM ELECTRONIC WARFARE SPECIALIST Height 162.6 cm (5' 4 ) 05/11/2019 8:55 AM ELECTRONIC WARFARE SPECIALIST Body Mass Index 21.8 05/11/2019 8:55 AM ELECTRONIC WARFARE SPECIALIST Plan of Treatment Not on file Insurance LAUREN GONZALEZ Care Teams Mechanical Cad Designer Relationship Specialty Start Date End Date Rand Leon MD [address] [place] [address] PCP - General Family Medicine 04/21/19
[2024-07-31 13:35] LABS: Basophils Absolute Auto 0.1 K/mm3 (0.0-0.1); Basophils Percent Auto 0.7 % (0.2-1.2); Eosinophils Absolute Auto 0.1 K/mm3 (0-0.3); Eosinophils Percent Auto 0.7 % (0-4.4); Hematocrit 43.5 % (37.0-47.0); Immature Granulocyte Absolute 0.02 K/mm3 (0.00-0.031); Immature Granulocyte Percent A 0.3 % (0-0.5); Lymphocytes Absolute Auto 1.78 K/mm3 (0.9-3.2); Lymphocytes Percent Auto 24.8 % (18.3-44.2); Mean Corpuscular HGB Conc 32.2 g/dl (32-36); Mean Corpuscular Hemoglobin 30.5 pg (26-34); Mean Corpuscular Volume 94.8 fl (80-100); Mean Platelet Volume 9.1 fl (7.4-10.4); Monocytes Absolute Auto 0.5 K/mm3 (0.1-0.6); Monocytes Percent Auto 7.4 % (2.6-8.5); Neutrophils Absolute Auto 4.8 K/mm3 (1.3-6.7); Neutrophils Percent Auto 66.1 % (45.5-73.1); Platelet Count Result 276 k/mm3 (150-375); Red Blood Count 4.59 M/mm3 (4.2-5.4); Red Cell Distribution Width 13.5 % (11.5-14.5); White Blood Count 7.2 K/mm3 (4.5-10.0)
[2024-07-31 13:40] LABS: Uric Acid 4.1 mg/dL (2.5-7.5)
[2024-07-31 13:51] LABS: LDL Cholesterol Direct 76 mg/dL
[2024-07-31 14:05] LABS: Alanine Aminotransferase 28 U/L (6-35); Albumin Level 4.7 g/dL (3.5-5.1); Alkaline Phosphatase 69 U/L (38-126); Anion Gap 9 mmol/L (4-12); Aspartate Amino Transferase 33 U/L (14-36); Bilirubin,Total 0.6 mg/dL (0.2-1.3); Blood Urea Nitrogen 21 mg/dL (7-17); Calcium 9.8 mg/dL (8.4-10.2); Carbon Dioxide 28 mmol/L (22-30); Chloride 102 mmol/L (98-107); Cholesterol 229 mg/dL (0-200); Estimated Glomerular Filt Rate > 60; Glucose 101 mg/dL (65-110); Potassium 3.8 mmol/L (3.4-5.0); Sodium 139 mmol/L (137-145); Triglycerides 67 mg/dL (<150)
[2024-07-31 14:17] LABS: Thyroid Stimulating Hormone Reflex 0.751 uIU/mL (0.465-4.68)
[2024-07-31 14:24] LABS: HDL Direct 127 mg/dL
[2024-08-04 15:29] LABS: Vitamin D 1,25 (OH)2 Total 26 pg/mL (18-72); Vitamin D2 1,25 (OH)2 26 pg/mL; Vitamin D3 1,25 (OH)2 <8 pg/mL
== END 2024-07-31 13:04 | disposition home or self-care (01) ==
PROVIDERS: PCP Family Medicine; Visit Provider Physician Assistant
DX: E55.9 Vitamin D deficiency, unspecified (principal); I10 Essential (primary) hypertension; E78.2 Mixed hyperlipidemia; Z90.5 Acquired absence of kidney; M79.673 Pain in unspecified foot
CPT/HCPCS: 36415; 80053; 80061; 82652; 84443; 84550; 85025

== ENCOUNTER 2024-12-11 14:55 | Outpatient (CLI) | payer MEDICARE, SELFPAY ==
--- OUTSIDE RECORDS SUMMARY | 2008-12-18 08:00 | XMS_ITS | Continuity of Care Document ---
Author Organization [facility] Address [address] [place] [address] [address] [place] [address] Phone Care Team Providers Care Print Line Supervisor Name Role Phone Yumiko Stokes Unavailable Unavailable Procedures Procedure Date Eye Exam & Treatment Eye Exam & Treatment Refraction Advance Directives Directive Yes / No Effective Date File Name No Information Encounters Encounter Description Practice Location Reason(s) For Visit Diagnoses Date Provider Providers Copied on Encounter [facility], [address] [place] [address] [address], [place], [place], [id number], tel:[phone] [facility] ([facility]) No Information [address] [facility] , [address], [place], [place], [facility] [place], [place]. tel:[phone] [facility], [address] [place] [address] [address], [place], [place], [id number], tel:[phone] [facility] ([facility] No Information [address] Div[address] Tovar [address] , [address], [place], [address], [place]. tel:[phone] Family History Family Member Type Diagnosis Age At Onset No Information Payers Payer name Insurance type Covered alliance party ID Authoriza tion(s) Medicare [facility] [id number] Social History Type Description Quantity Date Captured Comments Sex Female Smoking Status No Information Chief Complaint And Reason For Visit No Information Reason For Referral Reason For Referral No Information History Of Present Illness Encounter Date Complaint History Of Prese nt Illness No Information Functional Status Date Functional Assessmen t No Information Instructions Date Instruction Additional Infor mation No Information Assessments Type Assessment Date No Information Patient Care Teams Name Effective Dates (start - stop) Status Members No Information
--- NOTE | ~2024-12-11 | DEXA_ITS ---
Bone Density Report Name: NANCY CORRIGAN Age: 84 Sex: Female Ethnicity: White Date of : 1940 Indication: osteopenia; height loss; hysterectomy; Referring Provider: NIDIA FULLER Study: Bone densitometry was performed. Exam Date: December 11, 2024 Accession number: [id number] Bone Density: Region BMD T-score Z-score Classification AP Spine(L1-L4) 1.194 1.3 4.2 Normal Femoral Neck (Left) 0.611 -2.1 0.4 Osteopenia Total Hip (Left) 0.814 -1.1 1.3 Osteopenia Femoral Neck (Right) 0.612 -2.1 0.4 Osteopenia Total Hip (Right) 0.794 -1.2 1.1 Osteopenia Total Hip Mean 0.804 -1.2 1.2 Osteopenia World Health Organization criteria for BMD impression classify patients as: Normal (T-score at or above -1.0), Osteopenia (T-score between -1.0 and -2.5), or Osteoporosis (T-score at or below -2.5). 10-year Fracture Risk(1): Major Osteoporotic Fracture 15% Hip Fracture 5.2% Reported Risk Factors: [place] (), Neck BMD=0.611, BMI=24.3 (1) FRAX(R) Version 3.08. Fracture probability calculated for an untreated patient. Fracture probability may be lower if the patient has received treatment. Previous Exams: Region Exam Age BMD T-score BMD Change BMD Change Date g/cm2 vs Baseline vs Previous Total Hip(Left) 12/11/2024 84 0.814 -1.1 -0.010 (-1.2%) -0.007 (-0.8%) 10/31/2021 81 0.820 -1.0 -0.004 (-0.4%) -0.014 (-1.7%) 05/19/2019 79 0.834 -0.9 0.010 (1.3%)# -0.018 (-2.1%) 04/27/2017 77 0.853 -0.7 0.029 (3.5%)# 0.029 (3.5%)# 02/16/2011 70 0.824 -1.0 Total Hip(Right) 12/11/2024 84 0.794 -1.2 0.012 (1.5%)# 0.026 (3.4%) 10/31/2021 81 0.767 -1.4 -0.014 (-1.8%) 0.026 (3.5%) 05/19/2019 79 0.742 -1.6 -0.040 (-5.1%) -0.070 (-8.6%) 04/27/2017 77 0.811 -1.1 0.030 (3.8%)# 0.030 (3.8%)# 02/16/2011 70 0.782 -1.3 *Denotes significance at 95% confidence level, LSC for Total Hip = 0.027 g/cm2 # Denotes dissimilar scan types or analysis methods Clinical Information Provided by Patient: Has used the following medications: Vitamin D Has the following medical conditions: Hysterectomy Patient maximum height was 64.5 Menopause Age: 46 Drinks caffeinated beverages Onset of menses at age 13 Number of children 2 Impression: The patient has low bone mass, based on the Left Femoral Neck T-score. The patient has an estimated ten-year risk of hip fracture of 5.2% and an estimated ten-year risk of major fracture of 15%, based on the WHO FRAX algorithm. No significant bone loss was observed. Discussion: BONE DENSITY IS LOW AT ONE OR MORE SKELETAL SITES. THE PATIENT'S BMD AND CLINICAL RISK FACTORS CONTRIBUTE TO THIS PATIENT'S INCREASED RISK OF FRACTURE. This patient's lowest T-score is low at one or more skeletal sites. It meets the World Health Organization's (WHO) criteria for ?low bone mass? (T-score between -1.0 and -2.5). The patient's 10-year risk of hip fracture as calculated by FRAX exceeds the threshold where pharmacological therapy is recommended by the National Osteoporosis Foundation (NOF). However, all treatment decisions require clinical judgment and consideration of individual patient factors, including patient preferences, comorbidities, previous drug use, risk factors not captured in the FRAX model (e.g., frailty, falls, vitamin D deficiency, increased bone turnover, interval significant decline in bone density) and possible under or overestimation of fracture risk by FRAX. The patient should follow a healthful lifestyle (good nutrition with adequate calcium and vitamin D, and appropriate weight-bearing exercise). Follow-Up: Consider a repeat BMD and Vertebral Fracture Assessment (VFA) exam in 2 years or sooner if medically necessary, to reassess this patient's status. Reported by: HECTOR on 12/11/2024 3:39:00 PM. Reviewed, dictated and finalized at location A.
--- OUTSIDE RECORDS SUMMARY | 2024-12-11 15:10 | XMS_ITS | Clinical Summary ---
Author Organization [facility] [address] Address [address] [place] [address] Care Team Providers Care Diesel Plant Operator Name Role Phone Rand Leon MD Primary Care Provider Social History Tobacco Use Types Packs/Day Years Used Date Smoking Tobacco: Never Assessed Personal Safety Answer Date Recorded Getting School Help Needed Not on file 06/03 Comments Unknown Sex and Gender Information Value Date Recorded Sex Assigned at Not on file Legal Sex Female 12:01 AM YARN DRY ROOM WORKER Gender Identity Not on file Sexual Orientation Not on file Last Filed Vital Signs Vital Sign Reading Time Taken Comments Blood Pressure 146/85 05/11/2019 8:55 AM YARN DRY ROOM WORKER Pulse - - Temperature - - Respiratory Rate - - Oxygen Saturation - - Inhaled Oxygen Concentration - - Weight 57.6 kg (127 lb) 05/11/2019 8:55 AM YARN DRY ROOM WORKER Height 162.6 cm (5' 4) 05/11/2019 8:55 AM YARN DRY ROOM WORKER Body Mass Index 21.8 05/11/2019 8:55 AM YARN DRY ROOM WORKER Plan of Treatment Not on file Insurance LAUREN GONZALEZ Care Teams Diesel Plant Operator Relationship Specialty Start Date End Date Rand Leon MD [address] [place] [address] PCP - General Family Medicine 04/21/19
--- OUTSIDE RECORDS SUMMARY | 2024-12-11 15:10 | XMS_ITS | Clinical Summary ---
Author Organization [facility] Address [address] [place] [address] Care Team Providers Care Industrial Custodian Name Role Phone Rand Leon MD Primary Care Provider +1- [phone] Immunizations Immunization Administration Dates Next Due MODERNA COVID-19 (12+) MRNA, LNP-S, PF, 100 MCG/ 0.5 ML DOSE 05/31/2020,05/03/2020 Social History Tobacco Use Types Packs/Day Years Used Date Smoking Tobacco: Never Assessed Comments Unknown Sex and Gender Information Value Date Recorded Sex Assigned at Not on file Legal Sex Female 11:48 AM TIRE BLADDER MAKER Gender Identity Not on file Sexual Orientation [...] 2) 05/23/2018 03/28/2018 COVID-19 Vaccine (3 - 2024-2 6 season) 2024 05/31/2020, 05/03/2020 Meningococcal B Vaccine Aged Out No l onger eligible based on patient's age to complete this topic Meningococcal Vaccine Aged Out No lars mirta eligible based on patient's age to complete this topic RSV Immunizations Under 20 Months Aged Out No longer eligible b ased on patient's age to complete [place] [address] [facility] Care Teams Industrial Custodian Relationship Specialty Start Date End Date Rand Leon MD [address] [facility] [address] [facility] [address] [place] [address] PCP - General FAMILY PRACTICE 05/03/20
== END 2024-12-11 14:56 | disposition home or self-care (01) ==
PROVIDERS: PCP Family Medicine; Visit Provider Physician Assistant
DX: Z78.0 Asymptomatic menopausal state (principal); M85.852 Other specified disorders of bone density and structure, left thigh; M85.851 Other specified disorders of bone density and structure, right thigh
CPT/HCPCS: 77080

== ENCOUNTER 2025-02-12 09:16 | Outpatient (CLI) | payer MEDICARE, SELFPAY ==
--- OUTSIDE RECORDS SUMMARY | 2025-02-12 10:15 | XMS_ITS | Clinical Summary ---
Author Organization [facility] Address [address] [place] [address] Care Team Providers Care Executive Vp Name Role Phone Rand Leon MD Primary Care Provider +1- [phone] Immunizations Immunization Administration Dates Next Due MODERNA COVID-19 (12+) MRNA, LNP-S, PF, 100 MCG/ 0.5 ML DOSE 05/31/2020,05/03/2020 Social History Tobacco Use Types Packs/Day Years Used Date Smoking Tobacco: Never Assessed Comments Unknown Sex and Gender Information Value Date Recorded Sex Assigned at Not on file Legal Sex Female 11:48 AM DIGITAL MEDIA MANAGER Gender Identity Not on file Sexual Orientation Not on file Plan of Treatment Health Maintenance Due Date Last Done Comments DTaP, Tdap and Td Vaccines ( 1 - Tdap) 1959 Annual Medicare Wellness Visit 2003 RSV Immunization or 60+ Years (1 - 1-dose 75+ series) 2013 Pneumococcal Vaccine: 50+ Years (2 of 2 - PCV20 or PCV21) 04/18/2018 04/18/2017 Zoster Vaccines (2 of 2) 05/23/2018 03/28/2018 COVID-19 Vaccine (3 - 2024-2 6 season) 2024 05/31/2020, 05/03/2020 Influenza Adult (#1) 2024 12/28/2019, 12/16/2017 Hepatitis A Vaccines Aged Out No long er eligible based on patient's age to complete this topic Meningococcal B Vaccine Aged Out No l onger eligible based on patient's age to complete this topic Meningococcal Vaccine Aged Out No lars mirta eligible based on patient's age to complete this topic RSV Immunizations Under 20 Months Aged Out No longer eligible b ased on patient's age to complete this [place] [address] [facility] [place] [address] Care Teams Executive Vp Relationship Specialty Start Date End Date Rand Leon MD [address] [facility] [address] [facility] [address] [place] [address] PCP - General FAMILY PRACTICE 05/03/20
--- OUTSIDE RECORDS SUMMARY | 2025-02-12 10:15 | XMS_ITS | Clinical Summary ---
Author Organization [facility] [address] Address [address] [place] [address] Care Team Providers Care Jewelry Department Supervisor Name Role Phone Rand Leon MD Primary Care Provider Social History Tobacco Use Types Packs/Day Years Used Date Smoking Tobacco: Never Assessed Personal Safety Answer Date Recorded Getting School Help Needed Not on file 06/03 Comments Unknown Sex and Gender Information Value Date Recorded Sex Assigned at Not on file Legal Sex Female 12:01 AM BACKBREAKER Gender Identity Not on file Sexual Orientation Not on file Last Filed Vital Signs Vital Sign Reading Time Taken Comments Blood Pressure 146/85 05/11/2019 8:55 AM BACKBREAKER Pulse - - Temperature - - Respiratory Rate - - Oxygen Saturation - - Inhaled Oxygen Concentration - - Weight 57.6 kg (127 lb) 05/11/2019 8:55 AM BACKBREAKER Height 162.6 cm (5' 4) 05/11/2019 8:55 AM BACKBREAKER Body Mass Index 21.8 05/11/2019 8:55 AM BACKBREAKER Plan of Treatment Not on file Insurance LAUREN GONZALEZ Care Teams Jewelry Department Supervisor Relationship Specialty Start Date End Date Rand Leon MD [address] [place] [address] PCP - General Family Medicine 04/21/19
[2025-02-12 10:20] LABS: Alanine Aminotransferase 25 U/L (6-35); Albumin Level 4.3 g/dL (3.5-5.1); Alkaline Phosphatase 83 U/L (38-126); Anion Gap 7 mmol/L (4-12); Aspartate Amino Transferase 28 U/L (14-36); Bilirubin,Total 0.5 mg/dL (0.2-1.3); Blood Urea Nitrogen 20 mg/dL (7-17); Calcium 9.2 mg/dL (8.4-10.2); Carbon Dioxide 28 mmol/L (22-30); Chloride 101 mmol/L (98-107); Estimated Glomerular Filt Rate 58; Glucose 92 mg/dL (65-110); Potassium 4.0 mmol/L (3.4-5.0); Sodium 136 mmol/L (137-145); Total Protein 7.3 g/dL (6.3-8.2)
== END 2025-02-12 09:17 | disposition home or self-care (01) ==
PROVIDERS: PCP Family Medicine; Visit Provider Physician Assistant
DX: E78.2 Mixed hyperlipidemia (principal); I10 Essential (primary) hypertension
CPT/HCPCS: 36415; 80053